=== PATIENT | female | born 1990 | race Hispanic/Latino ===

== ENCOUNTER 2025-05-20 21:21 | Inpatient (IN) | payer BC ==
[2025-05-20 22:09] VITALS: BMI 35.5
[2025-05-20] MEDS ORDERED: Lidocaine 1% (PF) 30 ML VIAL SC PRN (23:00)
[2025-05-20] MEDS ORDERED: Oxytocin 30 units/NS 500 ML 500 ML IV SCH (23:00)
[2025-05-20] MEDS ORDERED: Ibuprofen 800 MG TAB PO PRN (23:00)
[2025-05-20 23:04] LABS: Hematocrit 33.0 % (34.9-44.5); Hemoglobin 10.8 g/dL (12.0-15.5); Mean Corpuscular Hemoglobin 29.8 pg (27.0-33.0); Mean Corpuscular Volume 91.2 fL (81.6-98.3); Platelet Count 197 10x3/uL (150-450); Red Blood Cell (RBC) Count 3.62 10x6/uL (3.90-5.03); White Blood Cell (WBC) Count 13.21 10x3/uL (3.5-10.5)
[2025-05-20] MEDS ORDERED: Methylergonovine 0.2 MG/ML VIAL IM PRN (23:15)
[2025-05-20] MEDS ORDERED: Ondansetron PF 4 MG/2 ML Vial IVP PRN (23:15)
[2025-05-20] MEDS ORDERED: Acetaminophen 500 MG TAB PO PRN (23:15)
[2025-05-20] MEDS ORDERED: Carboprost 250 MCG/ML AMP IM PRN (23:15)
[2025-05-20] MEDS ORDERED: hydrALAZINE 20 MG/ML VIAL SLOW IVP PRN (23:15)
[2025-05-20] MEDS ORDERED: Diphenoxylate HCl/Atropine Tablet PO PRN ×2 (23:15)
[2025-05-20] MEDS ORDERED: Tranexamic Acid 1,000 MG/10 ML VIAL IVP PRN (23:15)
[2025-05-20 23:33] LABS: Syphilis Antibody Index 0.10 S/CO (<1.00 Non-Reactive)
[2025-05-20 23:35] LABS: Hep B Surf Ag - L&D Non-Reactive S/CO (NonReactive)
[2025-05-20] MEDS: fentaNYL/Ropivacaine Epidural 100 ML ONE (23:50)
[2025-05-21 00:24] LABS: ALT (SGPT) 9 U/L (Less than 34); AST (SGOT) 14 U/L (11-34); Albumin 2.6 g/dL (3.1-4.5); Alkaline Phosphatase 136 U/L (40-110); Anion Gap 13 mmol/L (10-20); BUN (Urea Nitrogen) 13 mg/dL (7.0-18.7); Bilirubin, Total 0.1 mg/dL (0.3-1.2); Calc. Creatinine Clearance 165 mL/min (70-130); Calcium 7.9 mg/dL (7.8-10.44); Carbon Dioxide 18 mmol/L (22-29); Chloride 111 mmol/L (98-107); Globulin 2.8 g/dL (2.4-3.5); Glucose 98 mg/dL (70-105); Potassium 4.0 mmol/L (3.5-5.1); Sodium 138 mmol/L (136-145)
[2025-05-21 00:53] LABS: Protein, Urine Random Quant Less than 10 mg/dL (1-14)
[2025-05-21] MEDS: Oxytocin 30 units/NS 500 ML 500 ML IV SCH (02:14)
[2025-05-21] MEDS ORDERED: HYDROcodone/Acetaminophen 5/325 mg Tablet PO PRN (04:45)
[2025-05-21] MEDS ORDERED: Benzocaine-Menthol 82.5 ML CAN TOP PRN (04:45)
[2025-05-21] MEDS ORDERED: hydrALAZINE 20 MG/ML VIAL SLOW IVP PRN (04:45)
[2025-05-21] MEDS ORDERED: Ondansetron PF 4 MG/2 ML Vial IVP PRN (04:45)
[2025-05-21] MEDS ORDERED: diphenhydrAMINE 25 MG CAP PO PRN (04:45)
[2025-05-21] MEDS ORDERED: Milk Of Magnesia 30 ML UDCUP PO PRN (04:45)
[2025-05-21] MEDS ORDERED: Lanolin Ointment 7 GM TUBE TOP PRN (04:45)
[2025-05-21] MEDS ORDERED: Bisacodyl 10 MG SUPP PR PRN (04:45)
[2025-05-21] MEDS ORDERED: Ibuprofen 800 MG TAB PO SCH (06:00)
[2025-05-21] MEDS: Ferrous Sulfate 325 MG TAB PO SCH (10:19)
[2025-05-21] MEDS: Ibuprofen 800 MG TAB PO SCH (10:38)
[2025-05-21] MEDS ORDERED: Bupivacaine 0.25% HCL 30 ML VIAL ONE (11:48)
[2025-05-22 07:28] VITALS: BP 131/74; TEMP 97.6
== END 2025-05-22 10:02 | disposition home or self-care (01) | DRG 807 ==
LOC: CSHLD/OP 21:21 → CSHLD 22:26 → CSHPP 05-21 09:00
PROVIDERS: ADMIT Family Medicine; ATTEND Family Medicine
PROC: 10E0XZZ Delivery of Products of Conception, External Approach (ICD-10-PCS; principal; 2025-05-21)
PROC: 0KQM0ZZ Repair Perineum Muscle, Open Approach (ICD-10-PCS; 2025-05-21)
DX: O70.1 Second degree perineal laceration during delivery (principal); Z37.0 Single live birth; Z3A.38 38 weeks gestation of pregnancy
CPT/HCPCS: 80053; 82570; 84156; 85027; 86780; 86850; 86900; 86901; 87340; 99285; J0665; J2590; J7120